=== PATIENT | female | born 2000 | race Caucasian/White ===

== ENCOUNTER 2019-06-16 15:47 | Emergency (ER) | payer SELFPAY ==
[~2019-06-16] VITALS: Ht 137.2 cm; Wt 33.6 kg
[2019-06-16 15:48] VITALS: Ht 137.2 cm; Wt 33.6 kg
[2019-06-16 18:57] VITALS: BP 132/95
== END 2019-06-16 18:57 | disposition home or self-care (01) ==
LOC: ED 15:47
DX: H60.92 Unspecified otitis externa, left ear (principal)